=== PATIENT | male | born 1975 | race Asian ===

== ENCOUNTER 2019-11-21 06:30 | Day surgery (SDC) | payer OTHER ==
[~2019-11-21] VITALS: Ht 165.1 cm; Wt 62.6 kg
[~2019-11-21 06:30] MED LIST: ADVIL LIQUI-GE200 MG PO; BENADRYL25 MG PO; CLARITIN10 M2 PO; CLARITIN10 MG PO
[2019-11-21] MEDS ORDERED: TYLENOL EXTRA500 MG PO (08:47)
[2019-11-21] MEDS ORDERED: OXYCODON-ACETA1 EAC2 PO (08:47)
[2019-11-21] MEDS ORDERED: MOTRIN IB200 MG PO (08:48)
--- NOTE | 2019-11-22 11:46 | OR ---
[facility] [address], [place] [address] Signed DATE OF OPERATION: 11/21/2019 SURGEON: Tha Solis MD PREOPERATIVE DIAGNOSIS: Symptomatic umbilical hernia. POSTOPERATIVE DIAGNOSIS: Symptomatic umbilical hernia with herniated preperitoneal fat. PROCEDURE: Repair of umbilical hernia without implantation of mesh. ANESTHESIA: General endotracheal; Darron Jeff CRNA and local 20 mL of 0.25% Marcaine with epinephrine. 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 He is a patient of SHANA De La Rosa in [facility]. A CT scan was performed under the direction of Mr. Turner, which showed herniation of fat through an umbilical defect. Clinical examination is rather nonspecific. His pain is episodic and significant when it occurs and located in the umbilical area. He wishes to proceed with hernia repair. He understands the risks of bleeding, infection, and most importantly failure to cure his symptoms. He understands this, he wished to proceed. FINDINGS: Indeed there was an umbilical defect with herniated preperitoneal fat. Excision of the fat was undertaken. The defect was rather small at most 1.5 cm in size. The fascial edges were incised to allow for palpation in the preperitoneal space showing no sign of other fascial defect. Repair consisted of transverse reapproximation of the fascia with interrupted 0 Prolene suture in a vertical mattress configuration. Although, photos were taken throughout the procedure, the card used to capture the photos, was unable to print due to a defect in the card itself and therefore, there are no photos to document the procedure unfortunately. DESCRIPTION OF PROCEDURE: The patient was brought into the operating room, given a general endotracheal anesthetic. Preoperative antibiotic Ancef was given. Sequential compression device stockings were used and heparin subcutaneously administered. The abdomen was clipped Electronically Signed By: THA SOLIS MD 11/22/[address] NAME: [address] OPERATIVE REPORT DATE OF : 79 REPORT #: [id number] PHYSICIAN: THA SOLIS MD PCP: Cade SCRUGGS MD REPORT IS CONFIDENTIAL AND NOT TO BE RELEASED WITHOUT AUTHORIZATION [facility] [address] [place], [place] [address] Signed and prepared with a chlorhexidine solution and draped sterilely. A curvilinear incision was made on the left side of the umbilicus. Dissection carried through the dermis sharply. Electrocautery was used for hemostasis. Dissection was carried through the subcutaneous space, identifying herniated fat. The fascial edges were easily defined and the skin and so forth of the umbilicus were freed. There appeared to be herniated preperitoneal fat, which was not reducible particularly. Noting that the fascial edge was well defined, the defect looked to be about 1.5 cm at most. The herniated preperitoneal fat was excised. The fascial edges were delatorre and strong. The fascia was incised laterally to the left, allowing for placement of index finger in the preperitoneal space. This allowed for determination that there were no other fascial defects in the surrounding area. There were none. Repair was deemed most appropriate with reapproximation of the fascia rather than implantation of Prolene mesh given the small size of the defect. The fascial layer was reapproximated transversely with interrupted 0 Prolene suture in a vertical mattress configuration. A small defect at the base of the umbilicus skin was noted. This was secured with interrupted 2-0 Vicryl. The depth of the dermis was then secured to the fascia similarly. A 20 mL of 0.25% Marcaine with epinephrine injected in the fascial area and the subcutaneous tissue as well. Eusebia's layer was reapproximated with interrupted 2-0 Vicryl and the skin was closed with running subcuticular 3-0 Vicryl. Steri-Strips were applied as was a silver sponge dressing with adhesive. The patient was extubated "deep" and transferred to the recovery room in good condition having suffered no complications. Sponge, needle, and counts reported as correct x3. Tha Solis MD /MODL /[id number] cc: MD Tha Ohara PA Copies: Cade SCRUGGS MD Electronically Signed By: THA SOLIS MD 11/22/[address] NAME: [address] OPERATIVE REPORT DATE OF : 79 REPORT #: [id number] PHYSICIAN: THA SOLIS MD PCP: Cade SCRUGGS MD REPORT IS CONFIDENTIAL AND NOT TO BE RELEASED WITHOUT AUTHORIZATION [address] [id number] Signed THA TURNER ~ Electronically Signed By: THA SOLIS MD 11/22/19 [address]IENT NAME: [address] OPERATIVE REPORT DATE OF : [birth year] REPORT #: [id number] PHYSICIAN: THA SOLIS MD PCP: Cade SCRUGGS MD REPORT IS CONFIDENTIAL AND NOT TO BE RELEASED WITHOUT AUTHORIZATION
== END 2019-11-21 10:20 | disposition home or self-care (01) ==
LOC: DS 06:30
PROVIDERS: Surgery
PROC: 0WQF0ZZ Repair Abdominal Wall, Open Approach (ICD-10-PCS; principal; 2019-11-21 06:45)
DX: K42.9 Umbilical hernia without obstruction or gangrene (principal); K45.8 Other specified abdominal hernia without obstruction or gangrene; Z79.899 Other long term (current) drug therapy
CPT/HCPCS: C1781; J0690; J1100; J1644; J1885; J2001; J2405; J2704; J3010; J7121